=== PATIENT | male | born 1950 | race Two or more races ===

== ENCOUNTER 2021-09-16 18:43 | Emergency (ER) | payer MEDICARE, MEDICAID ==
[~2021-09-16] VITALS: Ht 170.2 cm; Wt 60.0 kg
[~2021-09-16 18:43] MED LIST: DIVA-80 PO; DOCU250C14 PO; FOLI1TAB15 PO; MULT-29 PO; QUET100T PO; ZOLP10TA8 PO
[2021-09-16 19:54] LABS: BASOPHILS % (AUTO) 0.3 % (0.0-2.0); EOSINOPHILS % (AUTO) 1.6 % (1.0-6.0); HEMATOCRIT 36.5 % (41-53); LYMPHOCYTES # (AUTO) 1.3 K/uL (1.0-4.8); LYMPHOCYTES % (AUTO) 20.8 % (22.0-44.0); MEAN CORPUSCULAR HEMOGLOBIN 31.7 pg (26.0-34.0); MEAN CORPUSCULAR HGB CONC 32.8 G/dL (31.0-37.0); MEAN CORPUSCULAR VOLUME 96 fL (80-100); MONOCYTES # (AUTO) 0.7 K/uL (0.1-1.0); MONOCYTES % (AUTO) 11.2 % (2.0-9.0); NEUTROPHILS # (AUTO) 4.1 K/uL (1.8-7.7); NEUTROPHILS % (AUTO) 66.1 % (40.0-70.0); PLATELET COUNT (AUTO) 176 K/uL (150-450); RED BLOOD CELL COUNT(AUTO) 3.79 MIL/uL (4.50-5.90); RED CELL DISTRIBUTION WIDTH 15.5 % (11.5-14.5)
[2021-09-16] MEDS ORDERED: SODIUM CHLORIDE 0.9% 1,000 ML IV ONE (20:00)
[2021-09-16 20:01] LABS: CALCIUM, TOTAL 8.6 mg/dL (8.8-10.5); CREATININE 1.91 mg/dL (0.60-1.30); POTASSIUM 3.9 mmol/L (3.5-5.1)
[2021-09-16 20:08] LABS: AMMONIA 13 umol/L (11-32)
[2021-09-16 20:25] LABS: BILIRUBIN,TOTAL 1.2 mg/dL (0.1-1.0); TOTAL PROTEIN, SERUM 6.8 g/dL (6.4-8.2)
[2021-09-16 22:08] VITALS: BP 126/76
== END 2021-09-16 23:07 | disposition home or self-care (01) ==
LOC: EMS 19:03
DX: E86.0 Dehydration (principal); Z79.899 Other long term (current) drug therapy
CPT/HCPCS: 71045; 80053; 82140; 82550; 84484; 85025; 93005; 96360; 96361; 99285; 36415-L1; 36415-TC

== ENCOUNTER 2021-09-19 03:24 | Emergency (ER) | payer MEDICARE, MEDICAID ==
[~2021-09-19] VITALS: Ht 170.2 cm; Wt 60.0 kg
[2021-09-19 03:47] VITALS: BP 131/89
== END 2021-09-19 18:50 | disposition home or self-care (01) ==
LOC: EMS 03:24
DX: S89.92XA Unspecified injury of left lower leg, initial encounter (principal); S49.92XA Unspecified injury of left shoulder and upper arm, initial encounter; W01.0XXA Fall on same level from slipping, tripping and stumbling without subsequent striking against object, initial encounter; Y93.89 Activity, other specified; Y92.89 Other specified places as the place of occurrence of the external cause; Y99.8 Other external cause status
CPT/HCPCS: 73552; 99283